=== PATIENT | female | born 1990 | race Caucasian/White ===

== ENCOUNTER 2016-10-03 08:37 | Emergency (ER) | payer SELFPAY ==
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
[2016-10-03] MEDS ORDERED: Ketorolac INJ* 60 MG/2 ML VIAL IM ONE (09:48)
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
[2016-10-03 12:58] VITALS: BP 133/72
== END 2016-10-03 13:00 | disposition home or self-care (01) ==
LOC: ED 08:37
DX: S40.812A Abrasion of left upper arm, initial encounter (principal); M25.552 Pain in left hip; S60.512A Abrasion of left hand, initial encounter; S70.211A Abrasion, right hip, initial encounter; V49.9XXA Car occupant (driver) (passenger) injured in unspecified traffic accident, initial encounter; Y93.9 Activity, unspecified; Y92.9 Unspecified place or not applicable
CPT/HCPCS: 71250; 72040; 72220; 74176; 99283; J1885

== ENCOUNTER 2019-02-05 17:29 | Emergency (ER) | payer BC ==
--- NOTE | 2019-02-05 18:50 | ED ---
Neurological HPI - HPI Summary HPI Summary: 28-year-old female presents with tingling on the left side of her face today. She states on Sunday she had a very intense headache. States it lasted 9 hours. States resolved on its own. tried some ibuprofen without relief. She states that it started with her not being able to talk for 15 mins and then she developed some visual changes and then hour later developed headache. She's never had this before. No history of migraines. She follow-up with her primary Sunday and they told her she had a migraine. States she's felt very fatigued since. Today she noticed that she tingling on the left side of her face and down her left arm. No chest pain or shortness breath. Admits to some dizziness occasionally. No recent illness. No tick exposures. No weakness. No difficulties with speech. - History of Current Complaint Chief Complaint: EDNeurologicalDeficit Stated Complaint: MIGRAINE SYMPTOMS PER PT Time Seen by Provider: 02/05/19 18:14 Pain Intensity: 2 - Allergy/Home Medications Allergies/Adverse Reactions: Allergies Allergy/AdvReac Type Severity Reaction Status Date / Time No Known Allergies Allergy Verified 10/03/16 10:29 PMH/Surg Hx/FS Hx/Imm Hx Endocrine/Hematology History: Denies: Hx Diabetes Cardiovascular History: Denies: Hx Hypertension - Surgical History Surgery Procedure, Year, and Place: n/a Infectious Disease History: No Infectious Disease History: Denies: Traveled Outside the [place] in Last 30 Days - Family History Known Family History: Positive: Cardiac Disease - Social History Alcohol Use: Weekly Substance Use Type: Reports: None Smoking Status (MU): Never Smoked Tobacco Review of Systems Negative: Fever Negative: Chest Pain Negative: Shortness Of Breath Positive: Headache - resolved, Paresthesia All Other Systems Reviewed And Are Negative: Yes Physical Exam Triage Information Reviewed: Yes Vital Signs On Initial Exam: Initial Vitals Temp Pulse Resp BP Pulse Ox 97.0 F 84 16 131/79 100 02/05/19 17:34 02/05/19 17:34 02/05/19 17:34 02/05/19 17:34 02/05/19 17:34 Vital Signs Reviewed: Yes Appearance: Positive: Well-Appearing Skin: Positive: Warm, Dry Head/Face: Positive: Normal Head/Face Inspection Eyes: Positive: Normal, EOMI, ROXANE, Conjunctiva Clear ENT: Positive: Normal ENT inspection, Pharynx normal, TMs normal Neck: Positive: Other: - full ROM neck, nontender neck Respiratory/Lung Sounds: Positive: Clear to Auscultation, Breath Sounds Present Cardiovascular: Positive: Normal, RRR Musculoskeletal: Positive: Normal Neurological: Positive: Sensory/Motor Intact, Alert, Oriented to Person Place, Time, CN Intact II-III, Reflexes Intact - biceps, Finger to Nose, Facial Symmetry, Speech Normal Psychiatric: Positive: Normal Procedures - Sedation Patient Received Moderate/Deep Sedation with Procedure: No Diagnostics - Vital Signs Vital Signs Temp Pulse Resp BP Pulse Ox 02/05/19 17:34 97.0 F 84 16 131/79 100 - Laboratory Result Diagrams: 02/05/19 18:46 02/05/19 18:46 Lab Statement: Any lab studies that have been ordered have been reviewed, and results considered in the medical decision making process. - CT brain CT Interpretation Completed By: Radiologist Summary of CT Findings: IMPRESSION: No acute intracranial abnormality. cta CT Interpretation Completed By: Radiologist Summary of CT Findings: IMPRESSION: No acute findings. There is no evidence of a hemodynamically significant stenosis involving the intracranial vasculature. The right middle cerebral arterial territory shows no evidence of avascular occlusion. Course/Dx - Course Course Of Treatment: 28-year-old female presents with tingling on the left side of her face today. She states on Sunday she had a very intense headache. States it lasted 9 hours. States resolved on its own. tried some ibuprofen without relief. She states that it started with her not being able to talk for 15 mins and then she developed some visual changes and then hour later developed headache. She's never had this before. No history of migraines. She follow-up with her primary Sunday and they told her she had a migraine. States she's felt very fatigued since. Today she noticed that she tingling on the left side of her face and down her left arm. No chest pain or shortness breath. Admits to some dizziness occasionally. No recent illness. No tick exposures. No weakness. On exam cranial nerves intact. Sensation is grossly intact. No neuro deficit noted. With recent headache and new neuro symptoms will get a CT and CTA. lab work wnl. CT brain shows no acute finding. CTA shows no acute findings. will have follow up with neurology. patient understand and agrees with plan. - Differential Dx Differential Diagnoses Neuro: Positive: Goldman's Palsy, Headache, Metabolic Abnormality, Migraine - Diagnoses Provider Diagnoses: Paresthesia Discharge ED - Sign-Out/Discharge Documenting (check all that apply): Patient Departure - Discharge Plan Condition: Good Disposition: HOME Patient Education Materials: Paresthesia (ED) Referrals: Yuni Crespo NP [Primary Care Provider] - Maggi Gasca MD [Medical Doctor] - Additional Instructions: follow up with neurology Return to ED if develop any new or worsening symptoms - Billing Disposition and Condition Condition: GOOD Disposition: Home - Attestation Statements Provider Attestation: I was available for consultation for this patient. I did not evaluate the patient or participate in any medical decision making or disposition decisions unless I am specifically named in the chart as having consulted on the patient. If I have consulted on the patient, please see my own ED note on the patient encounter. Odilon Zelaya MD
[2019-02-05 18:56] LABS: ABS Eosinophils 0.3 10^3/ul (0-0.6); ABS Lymphocytes 3.4 10^3/ul (1.0-4.8); ABS Monocytes 0.8 10^3/ul (0-0.8); ABS Neutrophils 4.9 10^3/ul (1.5-7.7); Eosinophil % 2.8 %; Hematocrit 39 % (35-47); Hemoglobin 13.3 g/dL (12.0-16.0); Lymphocyte % 36.4 %; Mean Corpuscular HGB Conc 34 g/dL (31-36); Mean Corpuscular Hemoglobin 29 pg (27-31); Mean Corpuscular Volume 85 fL (80-97); Mean Platelet Volume 7.9 fL (7.4-10.4); Nucleated Red Blood Cells % 0.1; Platelet Count 382 10^3/uL (150-450); Red Blood Count 4.64 10^6 /uL (3.70-4.87); Red Cell Distribution Width 14 % (10-15); White Blood Count 9.5 10^3/uL (3.5-10.8)
[2019-02-05 19:13] LABS: ALT 21 U/L (7-52); Albumin 4.6 g/dL (3.2-5.2); Albumin/Globulin Ratio 1.4 (1-3); Alkaline Phosphatase 69 U/L (34-104); BUN/Creatinine Ratio 13.9 (8-20); Blood Urea Nitrogen 10 mg/dL (6-24); CO2 Carbon Dioxide 24 mmol/L (22-32); Calcium 9.6 mg/dL (8.6-10.3); Chloride 107 mmol/L (101-111); EGFR African American 116.7 (>60); EGFR Non-African American 96.5 (>60); Globulin 3.3 g/dL (2-4); Glucose 89 mg/dL (70-100); Sodium 138 mmol/L (135-145); Total Protein 7.9 g/dL (6.4-8.9)
[2019-02-05 19:19] LABS: HCG Pregnancy < 0.60 mIU/mL
[2019-02-05 19:20] LABS: AST 25 U/L (13-39); Anion Gap 7 mmol/L (2-11)
[2019-02-05] MEDS ORDERED: Iohexol 350* (CONTRAST) 500 ML MDV IV ONE (19:31)
[2019-02-05 19:48] LABS: TSH (Thyroid Stimulating Horm) 2.63 mcIU/mL (0.34-5.60)
[2019-02-05 20:48] VITALS: BP 121/63
== END 2019-02-05 20:51 | disposition home or self-care (01) ==
LOC: ED 17:29
DX: R20.2 Paresthesia of skin (principal)
CPT/HCPCS: 36415; 70450; 70496; 70498; 80053; 83735; 84443; 84702; 85025; 86618; 99283; Q9967

== ENCOUNTER 2023-08-09 06:40 | Observation (INO) ==
[2023-08-09] MEDS ORDERED: oxyCODONE SR 10 mg TAB ONE (07:29)
[2023-08-09] MEDS ORDERED: Scopolamine 1 mg/72hr PATCH ONE (07:29)
[2023-08-09] MEDS ORDERED: Ondansetron 4 mg VIAL 2 MG/ML 2 ml VIAL ONE (07:29)
[2023-08-09 07:30] LABS: ABS Basophils 0.1 10^3/uL (0.0-0.1); ABS Eosinophils 0.2 10^3/uL (0.0-0.5); ABS Lymphocytes 2.5 10^3/uL (1.0-4.8); ABS Monocytes 0.7 10^3/uL (0.0-0.9); ABS Neutrophils 5.3 10^3/uL (1.5-7.6); Eosinophil % 2.5 %; Hematocrit 38.1 % (35-45); Hemoglobin 12.9 g/dL (11.5-14.3); Lymphocyte % 28.2 %; Mean Corpuscular Hemoglobin 28.6 pg (27-33); Mean Corpuscular Hgb Conc 33.7 g/dL (31-36); Mean Corpuscular Volume 84.8 fL (80-97); Mean Platelet Volume 7.8 fL (7.5-11.2); Platelet Count 460 10^3/uL (150-450); Red Cell Distribution Width 13.8 % (12-17); White Blood Count 8.7 10^3/uL (3.8-11.8)
[2023-08-09 07:46] LABS: Activated Partial Thrombo Time 35.2 seconds (26.0-38.0); INR 1.01 (0.83-1.13)
[2023-08-09] MEDS ORDERED: Naloxone 0.4 mg VIAL 0.4 mg/ml 1 ml VIAL IV PUSH PRN ×2 (08:02→08:33)
[2023-08-09] MEDS ORDERED: Flumazenil 0.5 mg/5 ml 0.1 MG/ML 5 ml VIAL IV PRN (08:02)
[2023-08-09] MEDS ORDERED: Lidocaine 1% VIAL 10 MG/ML 30 ML VIAL ONE (08:07)
[2023-08-09] MEDS ORDERED: Iohexol 350 (CONTRAST) 100 ML PAK IV ONE ×2 (08:07→09:14)
[2023-08-09] MEDS ORDERED: nitroGLYCERIN DRIP 25,000 MCG/250 ML BTL ONE (08:08)
[2023-08-09] MEDS ORDERED: Heparin 2 UNITS/ML IVPREMIX 3,000 UNIT/1,500 ML BAG IV ONE (08:08)
[2023-08-09] MEDS ORDERED: fentaNYL 250 mcg/5 ml 50 MCG/ML 5 ml VIAL (250 MCG) ONE (08:33)
[2023-08-09] MEDS ORDERED: Midazolam 5 mg/5 ml VIAL 1 mg/ml 5 ml VIAL (5 mg) ONE (08:33)
[2023-08-09] MEDS: Clindamycin 900 MG/50 **NS BAG 900 MG/50 ML BAG IV ONE (08:37)
[2023-08-09] MEDS: Midazolam 10 mg/10 ml VIAL 1 mg/ml 10 ml VIAL (10 mg) IV SLOW PU ONE (08:38)
[2023-08-09] MEDS: fentaNYL 100 mcg/2 ml 50 MCG/ML VIAL IV SLOW PU ONE (08:38)
[2023-08-09 08:57] LABS: Anion Gap 9 mmol/L (2-16); Blood Urea Nitrogen 8 mg/dL (6-24); CO2 Carbon Dioxide 25 mmol/L (22-32); Calcium 9.1 mg/dL (8.6-10.3); Chloride 103 mmol/L (101-111); Creatinine, Serum 0.72 mg/dL (0.51-0.95); Glucose 114 mg/dL (70-100); Potassium 4.1 mmol/L (3.5-5.0); Sodium 137 mmol/L (135-145); eGFR CKD-EPI 113.1 (>60)
[2023-08-09 09:15] LABS: HCG Pregnancy < 0.60 mIU/mL
[2023-08-09] MEDS ORDERED: HYDROmorphone 0.5 MG/0.5 ML SYRINGE ONE ×4 (09:31→10:06)
[2023-08-09] MEDS ORDERED: Heparin 2 UNITS/ML IVPREMIX 1,000 UNIT/500 ML BAG IV ONE (10:12)
[2023-08-09] MEDS: HYDROmorphone PCA 20 MG/20 ML PCA.SYRING PCA SCH (10:58)
[2023-08-09] MEDS ORDERED: Albuterol HFA INHALER 8 gm MDI INH PRN (12:10)
[2023-08-09] MEDS ORDERED: Al Hydrox/Mg Hydrox/Simet LIQ 30 ML UDC PO PRN (12:11)
[2023-08-09] MEDS ORDERED: Polyethylene Glycol 3350 17 GM PACKET PO PRN (12:11)
[2023-08-09] MEDS: NS 0.9% 1000 ml BAG 1,000 ML IV ONE (15:16)
[2023-08-09] MEDS: Ondansetron 4 mg VIAL 2 MG/ML 2 ml VIAL IV SCH (16:33)
[2023-08-10 06:12] LABS: ABS Lymphocytes 1.7 10^3/uL (1.0-4.8); ABS Neutrophils 11.9 10^3/uL (1.5-7.6); Hematocrit 36.4 % (35-45); Hemoglobin 12.3 g/dL (11.5-14.3); Lymphocyte % 11.8 %; Mean Corpuscular Hemoglobin 28.7 pg (27-33); Mean Corpuscular Hgb Conc 33.8 g/dL (31-36); Mean Corpuscular Volume 84.8 fL (80-97); Mean Platelet Volume 8.1 fL (7.5-11.2); Platelet Count 447 10^3/uL (150-450); Red Blood Count 4.29 10^6/uL (3.63-4.92); Red Cell Distribution Width 13.7 % (12-17); White Blood Count 14.7 10^3/uL (3.8-11.8)
[2023-08-10 06:25] LABS: Calcium 9.1 mg/dL (8.6-10.3); Creatinine, Serum 0.57 mg/dL (0.51-0.95); Potassium 4.4 mmol/L (3.5-5.0)
[2023-08-10] MEDS ORDERED: CMCS: Ketorolac 10 mg TAB (NF) PO SCH (08:00)
[2023-08-10] MEDS: HYDROcodone/ACETAMIN 5/325 mg TAB PO PRN (09:24)
[2023-08-10 09:32] VITALS: BP 122/79
[2023-08-10] MEDS: CMCS: Ketorolac 10 mg TAB (NF) PO SCH (10:50)
== END 2023-08-10 11:20 | disposition home or self-care (01) ==
LOC: SSU 06:40 → CHICATH 06:40 → SUATTDRO 12:11
PROVIDERS: ADMIT Internal Medicine; ATTEND Hospitalist
PROC: ANG.UFE (2023-08-09 08:15)